=== PATIENT | female | born 1995 | race Caucasian/White ===

== ENCOUNTER 2018-05-13 02:11 | Emergency (ER) | payer SELFPAY ==
[~2018-05-13] VITALS: Ht 165.1 cm; Wt 52.2 kg
--- NOTE | 2018-05-13 02:37 | NUR ---
Patient discharged to home in stable conditon. Written and verbal after care instructions given. Patient verbalizes understanding of instructions. Patient ambulated out of ER with stable gait.
[2018-05-13 02:39] VITALS: BP 112/58
== END 2018-05-13 02:41 | disposition home or self-care (01) ==
LOC: ER 02:16
DX: T70.0XXA Otitic barotrauma, initial encounter (principal); M54.6 Pain in thoracic spine; V49.9XXA Car occupant (driver) (passenger) injured in unspecified traffic accident, initial encounter; Y93.89 Activity, other specified; Y92.410 Unspecified street and highway as the place of occurrence of the external cause; Y99.8 Other external cause status
CPT/HCPCS: A4663